=== PATIENT | male | born 1985 | race Caucasian/White ===

== ENCOUNTER 2022-07-31 12:16 | Day surgery (SDC) | payer OTHER ==
[~2022-07-31] VITALS: Ht 180.3 cm; Wt 81.4 kg
[~2022-07-31 12:16] MED LIST: NS 1,000 ML IV ONE; PANT40TA29 PO
[2022-07-31] MEDS ORDERED: LIDOCAINE 2% 100MG/5ML SDV (FOR ANES.) As Ordered ONE (14:21)
[2022-07-31] MEDS ORDERED: propofoL 200 MG/20 ML VIAL As Ordered ONE ×2 (14:21→14:39)
[2022-07-31 15:10] VITALS: BP 94/58
== END 2022-07-31 15:20 | disposition home or self-care (01) ==
LOC: M OPP 12:16
PROVIDERS: ATTEND Internal Medicine Gastroenterology
DX: K22.89 Other specified disease of esophagus (principal); F45.8 Other somatoform disorders; J02.9 Acute pharyngitis, unspecified; Z79.899 Other long term (current) drug therapy